=== PATIENT | female | born 1970 | race Caucasian/White ===

== ENCOUNTER 2022-04-21 18:36 | Emergency (ER) | payer BC ==
[~2022-04-21] VITALS: Ht 154.9 cm; Wt 64.0 kg
[2022-04-21 19:19] VITALS: BP 121/75
--- NOTE | 2022-04-21 19:31 | NUR ---
TO LOBBY FOLLOWING TRIAGE, AFTER OBTAINING UA
[2022-04-21 20:48] LABS: BASOPHILS % (AUTO) 0.2 % (0.0-2.0); EOSINOPHILS # (AUTO) 0.1 K/uL (0-0.4); EOSINOPHILS % (AUTO) 0.7 % (0.0-4.0); HEMATOCRIT 43.1 % (36-48); HEMOGLOBIN 14.5 g/dL (12.0-16.0); LYMPHOCYTES # (AUTO) 1.4 K/uL (2.5-16.5); LYMPHOCYTES % (AUTO) 13.2 % (20.5-51.1); MEAN CORPUSCULAR HEMOGLOBIN 31 pg (27-31); MEAN CORPUSCULAR HGB CONC 34 g/dL (33-37); MEAN CORPUSCULAR VOLUME 92.6 fL (80-94); MONOCYTES # (AUTO) 0.3 K/uL (0.8-1.0); MONOCYTES % (AUTO) 3.2 % (1.7-9.3); NEUTROPHILS # (AUTO) 8.5 K/uL (1.8-7.7); NEUTROPHILS % (AUTO) 82.7 % (42.2-75.2); PLATELET COUNT (AUTO) 223 K/uL (140-450); RED BLOOD CELL COUNT(AUTO) 4.65 MIL/uL (4.20-5.40); WHITE BLOOD COUNT (AUTO) 10.2 K/uL (4.8-10.8)
[2022-04-21 20:57] LABS: ANION GAP 14.6 (8-16); CARBON DIOXIDE 28.2 mmol/L (21-32); POTASSIUM 4.8 mmol/L (3.5-5.1)
[2022-04-21 21:13] LABS: ALBUMIN 4.2 g/dL (3.4-5.0); TOTAL BILIRUBIN 0.4 mg/dL (0.0-1.0)
--- NOTE | 2022-04-21 22:08 | NUR ---
Patient taken to bed 11.
[2022-04-21] MEDS ORDERED: KETOROLAC 30 MG/ML VIAL IM ONE (22:20)
--- NOTE | 2022-04-21 22:22 | NUR ---
epigastric pain 8/10 and had 1 episode of vomiting.
[2022-04-21] MEDS ORDERED: ONDANSETRON 4 MG ODT PO ONE (22:25)
[2022-04-21 23:03] LABS: APPEARANCE,URINE CLEAR (CLEAR); BILIRUBIN,URINE NEGATIVE (NEGATIVE); BLOOD, URINE NEGATIVE (NEGATIVE); COLOR,URINE YELLOW (YELLOW); LEUKOCYTE ESTERASE ,URINE NEGATIVE (NEGATIVE); NITRITE, URINE NEGATIVE (NEGATIVE); UGLUCOSE NEGATIVE (NEGATIVE)
[2022-04-22] MEDS ORDERED: ONDA-188 PO (01:05)
[2022-04-22] MEDS ORDERED: BEN10 PO (01:05)
[2022-04-22] MEDS ORDERED: ACET-5629 PO (01:05)
[2022-04-22] MEDS ORDERED: ACET-10509 PO (01:05)
[2022-04-22 01:50] VITALS: BP 121/75
--- NOTE | 2022-04-22 01:52 | NUR ---
Patient discharged with v/s stable. Written and verbal after care instructions given and explained. Patient verbalized understanding. Ambulatory with steady gait. All questions addressed prior to discharge. Advised to follow up with PMD. pt left with her belonigings
== END 2022-04-22 01:52 | disposition home or self-care (01) ==
LOC: MED 18:36
DX: A08.4 Viral intestinal infection, unspecified (principal); N83.8 Other noninflammatory disorders of ovary, fallopian tube and broad ligament; Z79.899 Other long term (current) drug therapy
CPT/HCPCS: 36415; 74176; 80053; 81003; 83690; 85025; 96372; 99285; J1885; Q0162